=== PATIENT | male | born 1995 | race Caucasian/White ===

== ENCOUNTER 2018-06-21 17:56 | Emergency (ER) | END 2018-06-21 20:05 | disposition home or self-care (01) ==

== ENCOUNTER 2019-04-02 09:45 | Emergency (ER) | payer BC ==
[~2019-04-02] VITALS: Ht 180.3 cm; Wt 106.4 kg
[2019-04-02 09:49] VITALS: Ht 180.3 cm; Wt 106.4 kg
[2019-04-02] MEDS ORDERED: ONDANSETRON (ODT) 4 MG TAB ODT STA (10:01)
[2019-04-02] MEDS ORDERED: KETOROLAC 30 MG INJ IM STA (10:01)
[2019-04-02 10:06] VITALS: BP 156/100; PULSE 89; RESP 17
[2019-04-02] MEDS ORDERED: HYDROCODONE/APAP (10/325) TAB PO ONE (10:30)
[2019-04-02] MEDS ORDERED: IBUP800T48 PO (10:33)
[2019-04-02] MEDS ORDERED: HYDR-3980 PO (10:33)
[2019-04-02] MEDS ORDERED: NALO4SPR NS (10:33)
[2019-04-02] MEDS ORDERED: ONDA4TAB14 PO (10:33)
--- NOTE | 2019-04-02 10:41 | ERD ---
ER Documentation Chief Complaint Chief Complaint left knee pain x 2 days HPI 24-year-old male who presents to the emergency room via EMS. He was referred from his primary care office. The patient was recently seen at outside hospital and diagnosed with a left patellar tendon rupture. The patient states that he was running and stopped on a flexed knee. The patient had a popping sensation he had lateral dislocation of the patella. He was imaged at the outside facility and placed in a knee immobilizer. The patient was following up with his regular doctor for referral to an orthopedic surgeon when he had an exacerbation of pain. The patient became very anxious and poured water on himself. EMS was called for further evaluation. The patient states the pain is improved. He notes moderate throbbing pain to the left knee. He has been taking his [place] but is only 5 mg with mild relief. Patient does describe a history of anxiety and states that he was extremely anxious related to the difficulty ambulating with crutches. ROS All systems reviewed and are negative except as per history of present illness. Medications Home Meds Active Scripts Ibuprofen* (Motrin*) 800 Mg Tab, 800 MG PO Q6H PRN for PAIN AND OR ELEVATED TEMP, #30 TAB Prov:OREN MOORE MD 04/02/19 Naloxone HCl nasal spray (Narcan 4 mg/0.1 mL nasal) 4 Mg [place], 4 MG NS .Q2-3MIN for OPIOID OVERDOSE, #2 SPRAY 0 Refills [place] 0.1 mL into one nostril. Repeat with second device into other nostril after 2-3 minutes if no or minimal response Prov:OREN MOORE MD 04/02/19 Ondansetron (Ondansetron Odt) 4 Mg Tab.rapdis, 4 MG PO Q6H PRN for NAUSEA AND/OR VOMITING, #10 TAB Prov:OREN MOORE MD 04/02/19 Hydrocodone/Acetaminophen ([place] 10-325 Tablet) 1 Each Tablet, 1 TAB PO Q6H PRN for PAIN, #12 TAB Prov:ORNE MOORE MD 04/02/19 Allergies Allergies: Uncoded Allergies: SULFA (Allergy, Intermediate, RASH, 06/21/18) PMhx/Soc History of Surgery: Yes (KNEE, SHOULDER) Anesthesia Reaction: No Hx Neurological Disorder: No Hx Respiratory Disorders: No Hx Cardiac Disorders: No Hx Psychiatric Problems: Yes (ANXIETY) Hx Miscellaneous Medical Probl: No Hx Alcohol Use: No Hx Substance Use: Yes (OCC) Hx Tobacco Use: Yes Smoking Status: Current every day smoker FmHx Family History: No diabetes Physical Exam Vitals Vital Signs Date Temp Pulse Resp B/P (MAP) Pulse Ox O2 O2 Flow FiO2 Time Delivery Rate 04/02/19 89 17 156/100 100 Room Air 10:06 (118) 04/02/19 98.4 99 18 153/91 99 09:49 (111) Physical Exam General: Well developed, well nourished, no acute distress Head: Normocephalic, atraumatic. Eyes: EOM intact ENT: Moist mucous membranes Neck: Full ROM Respiratory: No respiratory distress Cardiovascular: Well perfused distally Abdominal: Nondistended : Deferred MSK: Left lower extremity is in a knee immobilizer. When removed the patient has patella salvador. The patient has limited ability to extend the knee and disrupted extension function of the knee. The patient has strong distal pulses and strong popliteal pulses. No unilateral swelling. No significant effusion noted on the knee. Neurologic: Alert and oriented, moving all extremities, normal speech Skin: No rash Psych: Normal mood Results 24 hrs Current Medications Medications Dose Sig/Stacey Start Time Status Last (Trade) Ordered Route PRN Stop Time Admin Dose Reason Admin Ketorolac 30 mg ONCE STAT 04/02/19 DC 04/02/19 Tromethamine IM 10:01 10:11 (Toradol) 04/02/19 10:02 Ondansetron 4 mg ONCE STAT 04/02/19 DC 04/02/19 HCl (Zofran ODT 10:01 10:14 Odt) 04/02/19 10:02 1 tab ONCE ONCE 04/02/19 DC 04/02/19 Acetaminophen PO 10:30 10:10 / 04/02/19 10:31 Hydrocodone Bitart ([place] ()) Procedures/MDM MEDICAL DECISION MAKING: The patient gives an excellent history of what appears to be a complete rupture of the patellar tendon of the left lower extremity with subacute patellar dislocation now resolved. Patient's clinical exam is consistent with this. The patient is appropriately treated with a knee immobilizer and crutches. Appears the patient had an anxiety reaction and pain exacerbation while at his primary care office and was sent to the emergency room. At this time the patient's pain is much improved. His anxiety is much improved. Patient exhibits no signs or symptoms concerning for knee dislocation or vascular injury. The patient has strong distal pulses. I was able to speak to his referring physician who states that he can arrange for outpatient orthopedic follow-up which is appropriate. The patient was given crutches here because he left them in a doctor's office. ER COURSE: * Pain is well controlled with pain medication. The patient again is neurovascular intact and can be safely discharged. No indication for repeat imaging given thorough work-up and appropriate work-up and outpatient hospital recently. CONSULTATION: None DISPOSITION PLAN: The patient does not have an identifiable emergent medical condition that warrants inpatient hospitalization at this time. The patient is deemed safe for discharge with outpatient follow-up. We discussed follow up with the patient's primary care doctor within 24 to 48 hours as needed. We also discussed return to the emergency room for worsening symptoms or worsening condition. Outpatient referral: Ortho Discharge Medications: Motrin, [place], Zofran NARCOTIC MEDICATION: The patient has been prescribed a narcotic medication during this encounter. The patient has been warned about the use of narcotics. The patient should not drive or operate heavy machinery while taking this medication. The patient was also warned about the addictive properties of narcotic medications. Narcan prescription WAS provided given one of the following criteria were met: 1. More than 5 tablets of [place] 10 mg or 10 tablets of [place] 5 mg were prescribed. 2. Concomitant opiate and benzodiazepine prescriptions were provided. 3. There is evidence of prior history of opiate abuse or overdose. Departure Diagnosis: Primary Impression: Dislocation of left patella Encounter type: subsequent encounter Qualified Codes: S83.005D - Unspecified dislocation of left patella, subsequent encounter Additional Impression: Patellar tendon rupture Encounter type: subsequent encounter Laterality: left Qualified Codes: S86.812D - Strain of other muscle(s) and tendon(s) at lower leg level, left leg, subsequent encounter Condition: Stable Patient Instructions: Patellar Dislocation / Subluxation Referrals: COMM[facility] YOU HAVE RECEIVED A MEDICAL SCREENING EXAM AND THE RESULTS INDICATE THAT YOU DO NOT HAVE A CONDITION THAT REQUIRES URGENT TREATMENT IN THE EMERGENCY DEPARTMENT. FURTHER EVALUATION AND TREATMENT OF YOUR CONDITION CAN WAIT UNTIL YOU ARE SEEN IN YOUR DOCTORS OFFICE WITHIN THE NEXT 1-2 DAYS. IT IS YOUR RESPONSIBILITY TO MAKE AN APPOINTMENT FOR [facility]. IF YOU HAVE A PRIMARY DOCTOR --you should call your primary doctor and schedule an appointment IF YOU DO NOT HAVE A PRIMARY DOCTOR YOU CAN CALL OUR PHYSICIAN REFERRAL HOTLINE AT IF YOU CAN NOT AFFORD TO SEE A PHYSICIAN YOU CAN CHOSE FROM THE FOLLOWING [facility] [address] [facility] [address] [facility] [address] [facility] [address] [facility] [facility] [address] [facility]. [facility] [address] [facility]. [facility] YOU HAVE RECEIVED A MEDICAL SCREENING EXAM AND THE RESULTS INDICATE THAT YOU DO NOT HAVE A CONDITION THAT REQUIRES URGENT TREATMENT IN THE EMERGENCY DEPARTMENT. FURTHER EVALUATION AND TREATMENT OF YOUR CONDITION CAN WAIT UNTIL YOU ARE SEEN IN YOUR DOCTORS OFFICE WITHIN THE NEXT 1-2 DAYS. IT IS YOUR RESPONSIBILITY TO MAKE AN APPOINTMENT FOR FOLOW-UP CARE. IF YOU HAVE A PRIMARY DOCTOR --you should call your primary doctor and schedule and appointment IF YOU DO NOT HAVE A PRIMARY DOCTOR YOU CAN CALL OUR PHYSICIAN REFERRAL HOTLINE AT . IF YOU CAN NOT AFFORD TO SEE A PHYSICIAN YOU CAN CHOSE FROM THE FOLLOWING [facility]: [facility] [address] [place] [address] [facility] [address] [place] [address] [facility] [address] [place] [address] [facility] 7 a.m.- 11 p.m. Every Day of the Week NO APPOINTMENT OR AUTHORIZATION NEEDED SO [facility] Hours: Mon-Fri 9:00 AM - 5:00 PM Additional Instructions: Call your primary care doctor TOMORROW for an appointment during the next 1 WEEK.Tell the quality process auditor that you were referred from this facility.See the doctor sooner or return here if your condition worsens before your appointment time. OREN MOORE MD Apr 02, 2019 10:41
== END 2019-04-02 11:55 | disposition home or self-care (01) ==
LOC: E/R 09:45
DX: S83.005D Unspecified dislocation of left patella, subsequent encounter (principal); S86.812D Strain of other muscle(s) and tendon(s) at lower leg level, left leg, subsequent encounter; F17.210 Nicotine dependence, cigarettes, uncomplicated; X58.XXXD Exposure to other specified factors, subsequent encounter
CPT/HCPCS: 96372; 99284; J1885